=== PATIENT | female | born 1980 | race Caucasian/White ===

== ENCOUNTER 2016-07-01 01:35 | Emergency (ER) | payer MEDICAID ==
[~2016-07-01] VITALS: Ht 160 cm; Wt 80.5 kg
[2016-07-01 01:39] VITALS: Ht 160 cm; Wt 80.5 kg
[2016-07-01 04:55] LABS: ADD SCAN DIFF NO
[2016-07-01 05:00] LABS: BASOPHILS % 0.3 % (0.0-2.0); EOSINOPHILS # 0.1 10^3/ul (0.0-0.5); HEMOGLOBIN 13.5 g/dl (12.0-16.0); LYMPHOCYTES # 2.2 10^3/ul (0.8-2.9); LYMPHOCYTES % 27.9 % (15.0-51.0); MEAN CORPUSCULAR HGB CONC 32.1 g/dl (32.0-37.0); MEAN PLATELET VOLUME 10.8 fl (7.4-10.4); MONOCYTE # 0.5 10^3/ul (0.3-0.9); MONOCYTES % 5.9 % (0.0-11.0); NEUTROPHILS % 64.6 % (39.0-77.0); PLATELET COUNT 244 10^3/UL (140-415); RED BLOOD COUNT 4.83 10^6/ul (4.20-5.40); RED CELL DISTRIBUTION WIDTH 13.5 % (11.5-14.5); WHITE BLOOD COUNT 7.8 10^3/ul (4.8-10.8)
[2016-07-01 05:16] LABS: ALBUMIN 4.9 g/dl (3.3-4.9); CHLORIDE 104 mmol/L (97-110); SODIUM 145 mmol/L (135-144)
[2016-07-01 05:18] LABS: BILIRUBIN,INDIRECT 0.4 mg/dl (0-1.1); BILIRUBIN,TOTAL 0.4 mg/dl (0.2-1.3); CREATININE 0.63 mg/dl (0.44-1.00)
[2016-07-01 05:19] LABS: ALANINE AMINOTRANSFERASE 29 IU/L (13-69); ALKALINE PHOSPHATASE 83 IU/L (42-121); ASPARTATE AMINO TRANSFERASE 32 IU/L (15-46); BLOOD UREA NITROGEN 12 mg/dl (7-20); CARBON DIOXIDE 28 mmol/L (21-31); GLUCOSE 102 mg/dl (70-220); TOTAL PROTEIN 8.6 g/dl (6.1-8.1)
[2016-07-01 05:20] LABS: CALCIUM 9.6 mg/dl (8.4-10.2)
[2016-07-01 05:27] LABS: ALBUMIN/GLOBULIN RATIO 1.32; ANION GAP 17 (8-16)
[2016-07-01 05:31] LABS: TROPONIN-I < 0.012 ng/ml (0.00-0.12)
--- NOTE | 2016-07-01 06:28 | ERD ---
ER Documentation Chief Complaint Date/Time DATE: 07/01/16 TIME: 06:19 Chief Complaint Left arm feels sleepy HPI 35-year-old female presents with chief complaint of sudden onset left arm numbness and palpitations that began around 12:30 AM. Associated symptoms include diaphoresis and chills. She denies chest pain, shortness of breath, unilateral weakness or loss in range of motion, slurred speech, and trauma. She has no history of smoking. No history of cardiac or thyroid problems. She has not taken any medications for relief of symptoms. Currently rates discomfort in her arm a 4 out of 10 in severity. ROS All systems reviewed and are negative except as per history of present illness. Allergies Allergies: Coded Allergies: No Known Allergy (Unverified , 07/01/16) PMhx/Soc Medical and Surgical Hx: pt denies Medical Hx, pt denies Surgical Hx Hx Alcohol Use: No Hx Substance Use: No Hx Tobacco Use: No Smoking Status: Never smoker Physical Exam Vitals Vital Signs Date Time Temp Pulse Resp B/P Pulse Ox O2 Delivery O2 Flow Rate FiO2 07/01/16 01:39 98.3 84 20 116/65 100 Physical Exam GENERAL: Non-toxic. No apparent signs of distress. No slurred speech. HEENT: No facial asymmetry. Atraumatic. Bilateral eyes are PERRL EOM intact. Normal conjunctiva, no injection. No eyelid or lower eyelid swelling noted. Ears : Normal tympanic membrane, no erythema or bulging. No ear canal swelling. No ear discharge. Nose: no nasal discharge. Throat: Oropharynx normal. Tongue pink and moist. No tonsillar swelling or tonsillar exudates. No lymphadenopathy. LUNGS: Clear to auscultation. No accessory muscle use. No wheezing, no crackles. No signs or symptoms of respiratory distress. HEART: Regular rate and rhythm. No murmurs, clicks, rubs or gallops. 2+ radial pulses bilaterally. BACK: No midline tenderness, no costovertebral tenderness. EXTREMITIES: No peripheral cyanosis or edema. No focal pain or notable trauma. Full range of motion. Full sensation intact in all extremities. Good capillary refill. NEURO: The patient moves all 4 extremities with 5/5 strength. Cranial nerves are grossly intact. Normal mental status for age. Normal gait. Equal automatic washer mechanic strength bilaterally. Good muscle tone. SKIN: There is no apparent rash, petechiae, erythema or swelling. Good skin turgor. Result Diagram: 07/01/16 0445 07/01/16 0445 Results 24 hrs Laboratory Tests Test 07/01/16 04:45 White Blood Count 7.810^3/ul Red Blood Count 4.8310^6/ul Hemoglobin 13.5g/dl Hematocrit 42.0% Mean Corpuscular Volume 87.0fl Mean Corpuscular Hemoglobin 28.0pg Mean Corpuscular Hemoglobin Concent 32.1g/dl Red Cell Distribution Width 13.5% Platelet Count 85902^3/UL Mean Platelet Volume 10.8fl Neutrophils % 64.6% Lymphocytes % 27.9% Monocytes % 5.9% Eosinophils % 1.0% Basophils % 0.3% Nucleated Red Blood Cells % 0.0/100WBC Neutrophils # 5.010^3/ul Lymphocytes # 2.210^3/ul Monocytes # 0.510^3/ul Eosinophils # 0.110^3/ul Basophils # 0.010^3/ul Nucleated Red Blood Cells # 0.010^3/ul Sodium Level 145mmol/L Potassium Level 4.0mmol/L Chloride Level 104mmol/L Carbon Dioxide Level 28mmol/L Anion Gap 17 Blood Urea Nitrogen 12mg/dl Creatinine 0.63mg/dl Glucose Level 102mg/dl Calcium Level 9.6mg/dl Total Bilirubin 0.4mg/dl Direct Bilirubin 0.00mg/dl Indirect Bilirubin 0.4mg/dl Aspartate Amino Transf (AST/SGOT) 32IU/L Alanine Aminotransferase (ALT/SGPT) 29IU/L Alkaline Phosphatase 83IU/L Troponin I < 0.012ng/ml Total Protein 8.6g/dl Albumin 4.9g/dl Globulin 3.70g/dl Albumin/Globulin Ratio 1.32 Free Thyroxine Index 3.14ug/ml Thyroxine (T4) 9.8ug/dl Triiodothyronine (T3) Uptake 32.0% Procedures/MDM Patient reported sudden onset of left arm numbness around 12:30 AM. Associated symptoms included palpitations and diaphoresis. On examination the patient appears slightly anxious, however she denies history of anxiety. States that she took a class about cardiovascular problems, and remembers associating arm numbness or pain with heart attack. This caused her concern and she decided to come to the ER. She currently denies chest pain or shortness of breath. On exam sensation was intact in all extremities. She had no unilateral weakness, facial symmetry or slurred speech. She is a non-smoker and has no history of cardiac or thyroid problems. No history of coagulation disorders. Based on patient's concern and symptoms I ordered a basic workup including CBC, CMP, troponin, thyroid profile, and EKG. Awaiting results prior to further workup or management. CBC: No leukocytosis, neutrophilia, or anemia CMP: No severe electrolyte imbalance, normal kidney function, normal liver function, Thyroid profile: All within normal limits EKG (signed off by Dr. Baker) Rate/Rhythm: Normal Sinus Rhythm with a rate of 81 bpm QRS, ST, T-waves: No changes consistent w/ acute ischemia [place]: Normal Impression: No evidence of ischemia or arrhythmia, normal EKG I explained work of the patient, explained that symptoms do not appear to be due to cardiac or thyroid etiology at this time. I have low suspicion for CVA as patient has night physical exam findings consistent with this, I do not feel that head CT is warranted at this time. Explained that symptoms may have been due to stress or anxiety, or nerve palsy from sleeping on her arm. This may be true because patient woke up in the middle the night with symptoms of arm numbness and grew concerned. At this time low suspicion for acute coronary syndrome, CVA, ICH, hyperthyroidism, hypothyroidism, and infection. Patient is stable for discharge and outpatient management. Advised to follow- up with PCP in 1-2 days. Departure Diagnosis: Primary Impression: Arm paresthesia, left Additional Impression: Palpitations Condition: Good Patient Instructions: Palpitations, Paraesthesias Additional Instructions: Llame al doctor DARI y fauzia mathew MARCUS PARA DENTRO DE 1-2 JENNINGS.Dgale a la secretaria que nosotros le instruimos hacer esta marcus.Avise o llame si pugh condicin se empeora antes de la marcus. Regresa aqui si peor o no mejor. Sheeba Diaz PA-C Jul 01, 2016 06:28
[2016-07-01 06:30] VITALS: BP 120/58; PULSE 68; RESP 20; TEMP 98.3
== END 2016-07-01 06:35 | disposition home or self-care (01) ==
LOC: FTE 01:35
DX: R20.2 Paresthesia of skin (principal)
CPT/HCPCS: 80053; 84436; 84479; 84484; 85025; 93005